=== PATIENT | female | born 2000 | race Caucasian/White ===

== ENCOUNTER 2022-07-03 16:22 | Emergency (ER) | payer OTHER ==
[2022-07-03] MEDS ORDERED: diphenhydrAMINE 50 MG/ML 1 ML VIAL IVP STA (17:02)
[2022-07-03 17:51] LABS: Basophils % (A) 1 %; Eosinophils # (A) 0.1 k/uL (0-0.7); Eosinophils % (A) 2 %; HGB 14.9 gm/dL (11.4-16.0); Lymphocytes # (A) 0.9 k/uL (1.0-4.8); Lymphocytes % (A) 24 %; MCH 27.6 pg (25.0-35.0); MCHC 34.6 g/dL (31.0-37.0); Mean Platelet Volume 8.4; Monocytes # (A) 0.4 k/uL (0-1.0); Monocytes % (A) 9 %; Neutrophils # (A) 2.5 k/uL (1.3-7.7); Neutrophils % (A) 63 %; Platelet Count 168 k/uL (150-450); RBC 5.37 m/uL (3.80-5.40); RDW 12.5 % (11.5-15.5)
[2022-07-03 18:00] LABS: ALT 137 U/L (4-34); AST 85 U/L (14-36); African American GFR (CKD) >90 (>60 ml/min/1.73 sqM); Albumin 3.8 g/dL (3.5-5.0); Alkaline Phosphatase 88 U/L (38-126); Anion Gap 9 mmol/L; Blood Urea Nitrogen 8 mg/dL (7-17); Calcium 9.1 mg/dL (8.4-10.2); Carbon Dioxide 24 mmol/L (22-30); Chloride 106 mmol/L (98-107); Glucose 79 mg/dL (74-99); Non-African American GFR(CKD) >90 (>60 ml/min/1.73 sqM); Potassium 4.1 mmol/L (3.5-5.1); Sodium 139 mmol/L (137-145); Total Bilirubin 0.4 mg/dL (0.2-1.3); Total Protein 6.9 g/dL (6.3-8.2)
--- NOTE | 2022-07-03 18:30 | ED ---
General Adult HPI - General Chief complaint: Skin/Abscess/Foreign Body Stated complaint: rash on arms Time Seen by Provider: 07/03/22 16:43 Source: patient, RN notes reviewed Mode of arrival: ambulatory Limitations: no limitations - History of Present Illness Initial comments: 22-year-old female with past medical history significant for lupus presents to the emergency department with a chief complaint of rash. She reports she's noticed a rash on her bilateral upper extremities for the last 2 weeks. She reports that it is mildly itchy. She denies any recent new lotions, detergents or soaps. She has seen her jute bag sewer for this who recommended she starts taking some steroids however she refused. She reports that when she takes steroids she becomes more irritable. She denies any fevers, chills, edema with this. She denies anyone else in her household having this. - Related Data Previous Rx's Medication Instructions Recorded Hydrocortisone Cream 1 applic TOPICAL QID #28 gm 07/03/22 [Hydrocortisone 1% Cream] Allergies Allergy/AdvReac Type Severity Reaction Status Date / Time bacitracin Allergy Rash/Hives Verified 07/03/22 16:32 bee venom protein (honey bee) Allergy Anaphylaxis Verified 07/03/22 16:32 Review of Systems ROS Statement: Those systems with pertinent positive or pertinent negative responses have been documented in the HPI. ROS Other: All systems not noted in ROS Statement are negative. Past Medical History Past Medical History: GERD/Reflux, Hypertension Additional Past Medical History / Comment(s): lupus, lupus nephritis, herniated discs, asthma, History of Any Multi-Drug Resistant Organisms: None Reported Past Surgical History: Appendectomy, Cholecystectomy Past Psychological History: Anxiety, Bipolar, PTSD Smoking Status: Current every day smoker Past Alcohol Use History: None Reported Past Drug Use History: Marijuana General Exam Limitations: no limitations General appearance: alert, in no apparent distress Head exam: Present: atraumatic, normocephalic, normal inspection Eye exam: Present: normal appearance, PERRL, EOMI. Absent: scleral icterus, conjunctival injection, periorbital swelling ENT exam: Present: normal exam, mucous membranes moist Neck exam: Present: normal inspection. Absent: tenderness, meningismus, lymphadenopathy Respiratory exam: Present: normal lung sounds bilaterally. Absent: respiratory distress, wheezes, rales, rhonchi, stridor Cardiovascular Exam: Present: regular rate, normal rhythm, normal heart sounds. Absent: systolic murmur, diastolic murmur, rubs, gallop, clicks GI/Abdominal exam: Present: soft, normal bowel sounds. Absent: distended, tenderness, guarding, rebound, rigid Extremities exam: Present: normal inspection, full ROM, normal capillary refill. Absent: tenderness, pedal edema, joint swelling, calf tenderness Back exam: Present: normal inspection Neurological exam: Present: alert, oriented X3, CN II-XII intact Psychiatric exam: Present: normal affect, normal mood Skin exam: Present: warm, dry, intact, normal color, rash (Erythematous, flat, diffuse rash on bilateral forearms, and dorsal surface of hands. ) Course Vital Signs 07/03/22 07/03/22 07/03/22 16:27 17:32 18:45 Temperature 97.5 F L 98.2 F 96.8 F L Pulse Rate 85 80 76 Respiratory 18 16 16 Rate Blood Pressure 135/84 108/74 130/71 O2 Sat by Pulse 97 99 98 Oximetry Medical Decision Making - Medical Decision Making Was pt. sent in by a medical professional or institution (, PA, [employer], urgent care, hospital, or skilled nursing...) When possible be specific @ -[No] Did you speak to anyone other than the patient for history (EMS, parent, family, police, friend...)? What history was obtained from this source @ -[No] Did you review nursing and triage notes (agree or disagree)? Why? @ -[I reviewed and agree with nursing and triage notes] Were old charts reviewed (outside hosp., previous admission, EMS record, old EKG, old radiological studies, urgent care reports/EKG's, skilled nursing records)? Report findings @ -[No old charts were reviewed] Differential Diagnosis (chest pain, altered mental status, abdominal pain women, abdominal pain men, vaginal bleeding, weakness, fever, dyspnea, syncope, headache, dizziness, GI bleed, back pain, seizure, CVA, palpatations, mental health, musculoskeletal)? @ -[not applicable] EKG interpreted by me (3pts min.). @ -[As above] X-rays interpreted by me (1pt min.). @ -[None done] CT interpreted by me (1pt min.). @ -[None done] U/S interpreted by me (1pt. min.). @ -[None done] What testing was considered but not performed or refused? (CT, X-rays, U/S, labs)? Why? @ -[None] What meds were considered but not given or refused? Why? @ -[None] Did you discuss the management of the patient with other professionals (professionals i.e. DrGeeta, PA, [employer], lab, RT, psych nurse, manager social media, airfield services officer, teacher, protective services officer, nurse case management)? Give summary @ -[No] Was smoking cessation discussed for >3mins.? @ -[No] Was critical care preformed (if so, how long)? @ -[No] Were there social determinants of health that impacted care today? How? (Homelessness, low income, unemployed, alcoholism, drug addiction, transportati on, low edu. Level, literacy, decrease access to med. care, correction, rehab)? @ -[No] Was there de-escalation of care discussed even if they declined (Discuss DNR or withdrawal of care, Hospice)? DNR status @ -[No] What co-morbidities impacted this encounter? (DM, HTN, Smoking, COPD, CAD, Cancer, CVA, ARF, Chemo, Hep., AIDS, mental health diagnosis, sleep apnea, morbid obesity)? @ -[None] Was patient admitted / discharged? Hospital course, mention meds given and route, prescriptions, significant lab abnormalities, going to OR and other pertinent info. @ -Discharged. This is a 22-year-old female who presents the emergency department with rash. Patient had a thorough history and physical exam performed physical exam essentially unremarkable. Heart rate regular rate and rhythm, lungs clear to auscultation bilaterally abdomen is soft and nontender. Diffuse, erythematous, flat rash to bilateral extremities. Patient had lab work performed which was essentially unremarkable. Patient was offered steroids, however refused.. I discussed the results in detail with the patient verbalized understanding and all questions were addressed. Return precautions were discussed at length. Patient was discharged in stable condition. She was encouraged to follow up with her PCP in 1-2 days. Comes with SARAH Stewart who agrees with plan of care Undiagnosed new problem with uncertain prognosis? @ -[No] Drug Therapy requiring intensive monitoring for toxicity (Heparin, Nitro, Insulin, Cardizem)? @ -[No] Were any procedures done? @ -[No] Diagnosis/symptom? @ -Rash Acute, or Chronic, or Acute on Chronic? @ -acute Uncomplicated (without systemic symptoms) or Complicated (systemic symptoms)? @ -uncomplicated Side effects of treatment? @ -[No] Exacerbation, Progression, or Severe Exacerbation? @ -[No] Poses a threat to life or bodily function? How? (Chest pain, [place], [place], pneumonia, PE, COPD, DKA, ARF, appy, cholecystitis, CVA, Diverticulitis, Homicidal, Suicidal, threat to staff... and all critical care pts) @ -low likelihood - Lab Data Result diagrams: 07/03/22 17:05 07/03/22 17:05 Lab Results 07/03/22 07/03/22 Range/Units 17:05 17:05 WBC 4.0 (3.8-10.6) k/uL RBC 5.37 (3.80-5.40) m/uL Hgb 14.9 (11.4-16.0) gm/dL Hct 43.0 (34.0-46.0) % MCV 80.0 (80.0-100.0) fL MCH 27.6 (25.0-35.0) pg MCHC 34.6 (31.0-37.0) g/dL RDW 12.5 (11.5-15.5) % Plt Count 168 (150-450) k/uL MPV 8.4 Neutrophils % 63 % Lymphocytes % 24 % Monocytes % 9 % Eosinophils % 2 % Basophils % 1 % Neutrophils # 2.5 (1.3-7.7) k/uL Lymphocytes # 0.9 L (1.0-4.8) k/uL Monocytes # 0.4 (0-1.0) k/uL Eosinophils # 0.1 (0-0.7) k/uL Basophils # 0.0 (0-0.2) k/uL Sodium 139 (137-145) mmol/L Potassium 4.1 (3.5-5.1) mmol/L Chloride 106 (98-107) mmol/L Carbon Dioxide 24 (22-30) mmol/L Anion Gap 9 mmol/L BUN 8 (7-17) mg/dL Creatinine 0.37 L (0.52-1.04) mg/dL Est GFR (CKD-EPI)AfAm >90 (>60 ml/min/1.73 sqM) Est GFR (CKD-EPI)NonAf >90 (>60 ml/min/1.73 sqM) Glucose 79 (74-99) mg/dL Calcium 9.1 (8.4-10.2) mg/dL Total Bilirubin 0.4 (0.2-1.3) mg/dL AST 85 H (14-36) U/L ALT 137 H (4-34) U/L Alkaline Phosphatase 88 (38-126) U/L Total Protein 6.9 (6.3-8.2) g/dL Albumin 3.8 (3.5-5.0) g/dL Disposition Clinical Impression: Rash Disposition: HOME SELF-CARE Condition: Stable Instructions (If sedation given, give patient instructions): Acute Rash (ED) Additional Instructions: Please return to the nearest emergency department if symptoms worsen or persist Prescriptions: Hydrocortisone Cream [Hydrocortisone 1% Cream] 1 applic TOPICAL QID #28 gm Is patient prescribed a controlled substance at d/c from ED?: No Referrals: Ed Medrano DO [Primary Care Provider] - 1-2 days Time of Disposition: 18:29
[2022-07-03 18:35] VITALS: RESP 16
[2022-07-03 18:46] VITALS: BP 130/71; PULSE 76; TEMP 96.8
== END 2022-07-03 18:54 | disposition home or self-care (01) ==
LOC: EC 16:22
DX: R21 Rash and other nonspecific skin eruption (principal); I10 Essential (primary) hypertension; F12.90 Cannabis use, unspecified, uncomplicated; F17.200 Nicotine dependence, unspecified, uncomplicated; Z86.59 Personal history of other mental and behavioral disorders; Z91.030 Bee allergy status; Z88.8 Allergy status to other drugs, medicaments and biological substances
CPT/HCPCS: 36415; 80053; 85025; 99283; 96374; J1200

== ENCOUNTER → 2022-08-01 | Outpatient (CLI) | payer OTHER ==
[2022-08-01 13:41] LABS: Appearance,Urine Cloudy (Clear); Bilirubin,Urine Negative (Negative); Blood,Urine Large (Negative); Color,Urine Yellow; Glucose,Urine (UA) Negative (Negative); Ketones,Urine Negative (Negative); Leukocyte Esterase,Urine Trace (Negative); Mucus,Urine Many /hpf; Nitrite,Urine Negative (Negative); Protein,Urine 2+ (Negative); RBC,Urine 36 /hpf (0-5); Specific Gravity,Urine 1.022 (1.001-1.035); Squamous Epithelial Cell,Urine 4 /hpf (0-4); WBC,Urine 6 /hpf (0-5)
[2022-08-01 14:32] LABS: Creatinine,Urine Random 238.3 mg/dL; Protein/Creatinine Ratio,Urine 0.667
[2022-08-01 19:59] LABS: Basophils # (A) 0.01 X 10*3/uL (0.00-0.10); Basophils % (A) 0.2 %; Eosinophils % (A) 2.4 %; HCT 44.3 % (37.2-46.3); HGB 14.7 g/dL (12.0-15.0); Immature Grans, Automated 0.5 %; Lymphocytes # (A) 0.91 X 10*3/uL (0.90-5.00); MCH 27.1 pg (27.0-32.0); MCHC 33.2 g/dL (32.0-37.0); MCV 81.6 fL (80.0-97.0); Mean Platelet Volume 11.7 fL (9.5-12.2); Monocytes # (A) 0.59 X 10*3/uL (0.20-1.00); Monocytes % (A) 14.3 %; NRBC Per 100 WBC 0 /100 WBCS (0.0-0.0); Neutrophils # (A) 2.51 X 10*3/uL (1.80-7.70); Neutrophils % (A) 60.6 %; Platelet Count 192 X 10*3/uL (140-440); RBC 5.43 X 10*6/uL (4.10-5.20); WBC 4.14 X 10*3/uL (4.50-10.00)
[2022-08-01 21:12] LABS: African American GFR (CKD) 150.9 (60.0-200.0); Albumin 4.1 g/dL (3.8-4.9); Anion Gap 10.1 mmol/L (10.00-18.00); BUN/Creat Ratio 11.49 Ratio (12.00-20.00); Blood Urea Nitrogen 6.8 mg/dL (9.0-27.0); Calcium 9.3 mg/dL (8.7-10.3); Carbon Dioxide 24.1 mmol/L (20.0-27.5); Non-African American GFR(CKD) 130.2 (60.0-200.0); Phosphorus 3.4 mg/dL (2.4-5.1); Potassium 4.4 mmol/L (3.5-5.5); Uric Acid 4.5 mg/dL (2.9-7.7)
== END | disposition home or self-care (01) ==
LOC: LABWHC1 12:23
PROVIDERS: ATTEND Internal Medicine
DX: M32.14 Glomerular disease in systemic lupus erythematosus (principal); R80.1 Persistent proteinuria, unspecified
CPT/HCPCS: 36415; 80069; 81001; 82043; 82306; 82570; 82607; 83970; 84156; 84550; 85025